=== PATIENT | female | born 1985 | race Caucasian/White ===

== ENCOUNTER 2020-11-08 10:29 | Day surgery (SDC) | payer BC ==
[~2020-11-08] VITALS: Ht 149.9 cm; Wt 71.3 kg
[2020-11-08] MEDS ORDERED: NITR100C6 PO (10:52)
[2020-11-08] MEDS ORDERED: CELE200C PO (10:52)
[2020-11-08] MEDS ORDERED: METR-90 PO (10:52)
[2020-11-08 10:53] VITALS: BP 161/91
[2020-11-08] MEDS ORDERED: LACTATED RINGERS 1,000 ML IV SCH (11:00)
[2020-11-08] MEDS ORDERED: CHLORHEXIDINE 15 ML UDC MM ONE (11:00)
[2020-11-08] MEDS ORDERED: MIDAZOLAM 1 MG/ML, 2ML ONE (11:19)
[2020-11-08 11:29] LABS: HCG UR SG 1.015 (1.003-1.030)
[2020-11-08] MEDS ORDERED: FENTANYL PF 250 MCG/5ML ONE (12:06)
[2020-11-08] MEDS ORDERED: PROPOFOL 10 MG/ML, 20ML ONE (12:57)
[2020-11-08] MEDS ORDERED: CEFAZOLIN 1,000 MG ONE (12:57)
[2020-11-08] MEDS ORDERED: ONDANSETRON 2MG/ML, 2ML ONE (12:57)
[2020-11-08] MEDS ORDERED: OMNIPAQUE 350 MG/ML, 50 ML BOTTLE ONE (13:58)
[2020-11-08] MEDS ORDERED: MEPERIDINE/PF 25MG/ML,1ML ONE (14:12)
[2020-11-08] MEDS ORDERED: ONDANSETRON 2MG/ML, 2ML IVPush PRN (14:30)
[2020-11-08] MEDS ORDERED: PROMETHAZINE 25 MG/ML, 1ML IVPush PRN (14:30)
[2020-11-08] MEDS ORDERED: OXYcodone 5 MG/5 ML ORAL.SOL UDC PO PRN (14:30)
[2020-11-08] MEDS ORDERED: MEPERIDINE/PF 25MG/0.5ML IVPush PRN (14:30)
[2020-11-08] MEDS ORDERED: OXYcodone 5 MG/5 ML ORAL.SOL UDC ONE (14:33)
[2020-11-08] MEDS ORDERED: FENTANYL PF 100 MCG/2ML ONE (14:33)
[2020-11-08] MEDS: FENTANYL PF 100 MCG/2ML IV PRN ×2 (14:35→14:40)
[2020-11-08] MEDS: HYDROmorphone 1 MG/ML, 1ML INJ IVPush PRN ×2 (14:55→15:33)
[2020-11-08] MEDS ORDERED: HYDROmorphone 1 MG/ML, 1ML INJ ONE (15:01)
[2020-11-08] MEDS ORDERED: PROMETHAZINE 25 MG/ML, 1ML ONE (15:04)
[2020-11-08] MEDS ORDERED: KETOROLAC 30 MG/1 ML IVPush ONE (16:30)
[2020-11-08] MEDS ORDERED: KETOROLAC 30 MG/1 ML ONE (16:31)
== END 2020-11-08 17:55 | disposition home or self-care (01) ==
LOC: OUT 10:29
PROVIDERS: ATTEND Urology
DX: N20.1 Calculus of ureter (principal); Z20.822 Contact with and (suspected) exposure to COVID-19; Z79.899 Other long term (current) drug therapy; Z72.89 Other problems related to lifestyle
CPT/HCPCS: 52353; 74420; 81025; 87635; 88300; C1726; C1758; J0690; J1170; J1885; J2175; J2250; J2405; J2550; J2704; J3010; J7120; Q9967; 82360

== ENCOUNTER 2020-11-11 13:12 | Emergency (ER) | payer BC ==
[~2020-11-11] VITALS: Ht 149.9 cm; Wt 71.0 kg
[~2020-11-11 13:12] MED LIST: CELE200C PO; METR-90 PO; NITR100C6 PO
[2020-11-11] MEDS ORDERED: KETOROLAC 30 MG/1 ML ONE (13:49)
[2020-11-11] MEDS ORDERED: ONDANSETRON 2MG/ML, 2ML ONE (13:49)
[2020-11-11] MEDS ORDERED: MORPHINE SULFATE 4 MG/ML, 1ML ONE ×2 (13:50→15:17)
[2020-11-11 13:58] LABS: MICROSCOPIC AUTO
[2020-11-11] MEDS ORDERED: SODIUM CHLORIDE FLUSH 10ML SYR IVF ONE (14:00)
[2020-11-11] MEDS ORDERED: KETOROLAC 30 MG/1 ML IVPush ONE (14:00)
[2020-11-11] MEDS ORDERED: SODIUM CHLORIDE 0.9% 1,000ML IV ONE (14:00)
[2020-11-11] MEDS ORDERED: ONDANSETRON 2MG/ML, 2ML IVPush ONE (14:00)
[2020-11-11] MEDS: MORPHINE SULFATE 4 MG/ML, 1ML IVPush PRN ×2 (14:02→15:28)
[2020-11-11 14:13] LABS: BASOPHILS % (AUTO) 1 % (0-1); EOSINOPHILS % (AUTO) 2 % (1-7); LYMPHOCYTES % (AUTO) 19 % (22-44); MEAN CORPUSCULAR HGB CONC 33.4 g/dL (32.4-35.8); MEAN PLATELET VOLUME 8.6 fL (7.4-10.4); MONOCYTES % (AUTO) 7 % (2-9); NEUTROPHILS % (AUTO) 71 % (42-75); PLATELET COUNT 260 x10^3/uL (130-400); RED BLOOD COUNT 4.55 x10^6/uL (3.82-5.3); RED CELL DISTRIBUTION WIDTH 14.6 % (9.6-15.2)
[2020-11-11 14:14] LABS: MD NO
--- NOTE | 2020-11-11 14:18 | NUR ---
BREAK RN: IV IN RAC STARTED BY PRIMARY RN DC'D WITH TIP INTACT. PT WITH C/O "BURNING, SLOW INFUSING OF NS. IV RESTARTED IN LFA. PT MEDICATED ORDERD. PAIN DECREASED TO 2/10 AND NAUSEA BETTER" PT AND PTS UPDATED ON POC.
--- NOTE | 2020-11-11 14:21 | NUR ---
PT WITH RA SAT DECREASED TO 88% AFTER MORPHINE ADMINISTRATION. PT PLACED ON 2L NC.
[2020-11-11 14:23] LABS: ALANINE AMINOTRANSFERASE 26 U/L (12-78); ALBUMIN 3.6 g/dL (3.4-5.0); ANION GAP 6 mmol/L (5-15); CALCIUM 8.8 mg/dL (8.5-10.1); CHLORIDE 109 mmol/L (98-107); CREATININE 0.87 mg/dL (0.55-1.02)
[2020-11-11 14:25] LABS: ALKALINE PHOSPHATASE 67 U/L (45-117); BILIRUBIN,TOTAL 0.8 mg/dL (0.2-1.0); TOTAL PROTEIN 7.8 g/dL (6.4-8.2)
--- NOTE | 2020-11-11 14:34 | NUR ---
PT UP TO BR, GAIT STEADY. REPORT TO [facility].
--- NOTE | 2020-11-11 15:29 | NUR ---
MEDICATED PER ORDERS FOR PAIN
[2020-11-11 16:31] VITALS: BP 160/84
== END 2020-11-11 16:34 | disposition home or self-care (01) ==
LOC: ED 14:01
DX: N20.1 Calculus of ureter (principal); R10.31 Right lower quadrant pain; R10.11 Right upper quadrant pain; R00.0 Tachycardia, unspecified
CPT/HCPCS: 36415; 74018; 80053; 81001; 85025; 87086; 93005; 96361; 96374; 96375; 96376; 99285; J1885; J2270; J2405; J7030